=== PATIENT | male | born 1980 | race Caucasian/White ===

== ENCOUNTER 2021-04-20 01:06 | Inpatient (IN) ==
[2021-04-20 02:10] LABS: Bilirubin,Urine Negative (Negative); Blood,Urine Negative (Negative); Clarity,Urine Clear (Clear); Color,Urine Yellow (Yellow); Glucose,Urine (UA) Normal (Normal); Ketones,Urine 60 mg/dL (Negative); Leukocyte Esterase,Urine Negative (Negative); Nitrite,Urine Negative (Negative); Protein,Urine Trace mg/dL (Neg-Trace); Urobilinogen,Urine Normal (Normal)
[2021-04-20 02:14] LABS: Basophils # 0.1 K/mcL (0.0-0.2); Basophils % 0.4 %; Eosinophils % 0.2 %; Hematocrit 49.3 % (37.5-50.1); Hemoglobin 16.4 g/dL (12.9-16.9); Immature Granulocytes % 0.5 % (0-4); Lymphocytes # 2.9 K/mcL (0.6-4.6); Lymphocytes % 18.3 %; Mean Corpuscular HGB Conc 33.3 g/dL (31.6-35.5); Mean Corpuscular Hemoglobin 28.8 pg (28.0-33.3); Mean Corpuscular Volume 86.6 fL (83.0-100.0); Mean Platelet Volume 10.2 fL (9.4-12.4); Monocytes # 1.5 K/mcL (0.0-1.3); Monocytes % 9.5 %; Neutrophils # 11.1 K/mcL (1.6-8.9); Platelet Count 230 K/mcL (140-400); Red Blood Count 5.69 M/mcL (4.19-5.50); Red Cell Distribution Width 14.6 % (11.5-14.5); Segmented Neutrophils % 71.1 %; White Blood Count 15.6 K/mcL (4.3-11.1)
[2021-04-20 02:25] LABS: Amphetamine Screen,Urine Negative ng/mL (Cutoff=1000); Barbiturate Screen,Urine Negative ng/mL (Cutoff=200); Benzodiazepines Screen,Urine Negative ng/mL (Cutoff=200); Cannabinoid Screen,Urine Negative ng/mL (Cutoff = 50); Cocaine Screen,Urine Negative ng/mL (Cutoff= 300); Opiate Screen,Urine Negative ng/mL (Cutoff=300); Phencyclidine Screen,Urine Negative ng/mL (Cutoff=25)
[2021-04-20 02:38] LABS: Acetaminophen < 10 mcg/mL (10-20); BUN/Creatinine Ratio 20 (6-26); Blood Urea Nitrogen 27 mg/dL (6-20); Calcium 9.3 mg/dL (8.6-10.3); Carbon Dioxide 23 mEq/L (23-29); Chloride 105 mEq/L (98-107); Ethanol < 10 mg/dL (Less than 10); Glucose 85 mg/dL (70-105); Osmolality,Calculated 292 (280-300); Potassium 4.3 mEq/L (3.5-5.1); Salicylate < 2.5 mg/dL (15.0-30.0); Sodium 139 mEq/L (136-145); eGFR For African Americans > 60 (> 60); eGFR For Non-African Americans 58 (> 60)
[2021-04-20 05:31] LABS: Influenza A PCR Negative (Negative); Influenza B PCR Negative (Negative); Resp. Syncytial Virus PCR Negative (Negative); SARS-CoV-2 by PCR (In House) Negative (Negative)
[2021-04-20] MEDS ORDERED: MOM Conc 10 ML UD.LIQ PO PRN (05:40)
[2021-04-20] MEDS ORDERED: Haloperidol Lactate 5 MG/ML VIAL IM PRN (05:40)
[2021-04-20] MEDS ORDERED: Mag Hydrox/Al Hydrox/Simeth 30 ML UDC PO PRN (05:40)
[2021-04-20] MEDS ORDERED: *HR* LORazepam 1 MG TABLET PO PRN (05:40)
[2021-04-20] MEDS ORDERED: *HR* LORazepam 2 MG/ML VIAL IM PRN (05:40)
[2021-04-20] MEDS ORDERED: haloperidoL 5 MG TABLET PO PRN (05:40)
[2021-04-20] MEDS ORDERED: Nicotine 2 MG GUM BC PRN (12:32)
[2021-04-20] MEDS ORDERED: Ibuprofen 600 MG TABLET PO PRN (12:32)
[2021-04-20] MEDS: Nicotine 2 MG GUM BC PRN ×2 (16:40→19:50)
[2021-04-20] MEDS: hydrOXYzine pamoate 25 MG CAPSULE PO PRN (20:18)
[2021-04-20] MEDS: Acetaminophen 325 MG TABLET PO PRN (20:18)
[2021-04-20] MEDS: traZODone 50 MG TABLET PO PRN (20:18)
[2021-04-21] MEDS: Nicotine 2 MG GUM BC PRN ×6 (05:28→20:41)
[2021-04-21] MEDS ORDERED: Nicotine 14 MG PATCH.TD24 TD SCH (09:00)
[2021-04-21] MEDS: hydrOXYzine pamoate 25 MG CAPSULE PO PRN ×2 (17:47→20:41)
[2021-04-21] MEDS: Acetaminophen 325 MG TABLET PO PRN (20:40)
[2021-04-21] MEDS: traZODone 50 MG TABLET PO PRN (20:41)
[2021-04-22] MEDS: Nicotine 2 MG GUM BC PRN ×6 (08:59→21:36)
[2021-04-22] MEDS: hydrOXYzine pamoate 25 MG CAPSULE PO PRN ×2 (13:22→20:49)
[2021-04-22] MEDS: traZODone 50 MG TABLET PO PRN (20:49)
[2021-04-22] MEDS: Acetaminophen 325 MG TABLET PO PRN (20:49)
[2021-04-23] MEDS: Nicotine 2 MG GUM BC PRN ×5 (08:29→22:23)
[2021-04-23] MEDS: Acetaminophen 325 MG TABLET PO PRN (09:57)
[2021-04-23] MEDS: hydrOXYzine pamoate 25 MG CAPSULE PO PRN ×3 (09:57→22:22)
[2021-04-23] MEDS: traZODone 50 MG TABLET PO PRN (22:22)
[2021-04-24] MEDS: Nicotine 2 MG GUM BC PRN ×2 (08:00→11:17)
[2021-04-24 09:50] VITALS: BP 114/71; PULSE 88; TEMP 98.1; O2SAT 97
[2021-04-24] MEDS: hydrOXYzine pamoate 25 MG CAPSULE PO PRN (12:48)
== END 2021-04-24 12:45 | disposition other institution (70) | DRG 751 ==
LOC: EMEROOARM 01:06 → 1ANU 05:41
PROVIDERS: ADMIT Psychiatry & Neurology Psychiatry; ATTEND Psychiatry & Neurology Psychiatry